=== PATIENT | female | born 1985 | race Caucasian/White ===

== ENCOUNTER 2023-06-07 14:27 | Emergency (ER) | payer BC ==
[2023-06-07] MEDS ORDERED: Acetaminophen 500 MG TAB ONE (15:42)
[2023-06-07] MEDS ORDERED: Ketorolac Tromethamine 30 MG (1 mL) VIAL ONE (15:42)
== END 2023-06-07 17:42 | disposition home or self-care (01) ==
LOC: MADERS 14:27
DX: U07.1 COVID-19 (principal); R07.89 Other chest pain
CPT/HCPCS: 71046; 87804; 93005; 96372; J1885